=== PATIENT | female | born 1965 | race Caucasian/White ===

== ENCOUNTER 2021-12-13 08:03 | Emergency (ER) | payer BC, SELFPAY ==
[2021-12-13] VITALS (15 sets, daily range): BP systolic 138–185; BP diastolic 73–90; PULSE 49–89; RESP 12–20; TEMP 36.4; O2SAT 98–100
--- NOTE | ~2021-12-13 | CT_ITS ---
EXAMINATION: CTA chest abdomen DATE: 12/13/2021 12:41 INDICATION: Epigastric abdominal pain radiating to the back. TECHNIQUE: Computed tomographic angiography (CTA) of the chest and abdomen was performed with 100 mL Omnipaque-350 intravenous contrast. Automated exposure control and iterative reconstruction technique were employed. The dose-length product was 860.48 mGy-cm. Maximum intensity projection 3D-reconstruc tions of the aorta and other arteries were constructed by the technologist on a separate workstation. COMPARISON: Chest 2 views 12/13/2021 FINDINGS: CHEST CTA: The lungs demonstrate mild atelectasis. No pleural effusion. The heart size is normal. No pericardial effusion. Thoracic aorta is normal. There is no pulmonary embolus. There is mild thoracic spondylosi s. ABDOMEN CTA: The liver is normal. There are changes of cholecystectomy. The spleen, pancreas, and adrenal glands a re normal. There are cysts in the kidneys measuring up to 12 mm on the right. There is a 3 mm stone i n right kidney. There are no dilated loops of bowel. There are no pathologically enlarged lymph nodes . There is no free intraperitoneal fluid. Abdominal aorta is normal in caliber. 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 There is no significant stenosis of the superior or inferior mesenteric arteries or renal arteries. There are no pathologically enlar ged lymph nodes. There is no free intraperitoneal fluid. There is mild lumbar spondylosis. IMPRESSION: 1. Normal aorta. Reviewed, dictated and finalized at location A. HELP DESK ASSOCIATE IMPRESSION: 1. Normal aorta.
--- NOTE | ~2021-12-13 | XR_ITS ---
EXAMINATION: XR chest 2V 12/13/2021 08:48 INDICATION: Chest pain PROCEDURE: 2 view chest COMPARISON: 02/27/2018 FINDINGS: The lungs are clear. The cardiomediastinal silhouette is within normal limits. There are no pleural effusions. There is no pneumothorax suspected. IMPRESSION: 1: NO ACUTE CARDIOPULMONARY DISEASE. Reviewed, dictated and finalized at location B. NING LABORER
--- NOTE | 2021-12-13 08:30 | ECG_ITS ---
Measurements Intervals [place] Rate: 59 P: 29 PA: 139 QRS: 35 QRSD: 85 T: 50 QT: 381 QTc: 378 Interpretive Statements SINUS BRADYCARDIA BASELINE ARTIFACT- I, II, AVR, V1 BORDERLINE ECG Electronically Signed On 12-13-2021 12:21:43 [employer] by Jamie Welch D.O.
[2021-12-13 08:55] LABS: Basophils Percent Auto 0.4 % (0.2-1.2); Eosinophils Absolute Auto 0.2 K/mm3 (0-0.3); Eosinophils Percent Auto 2.1 % (0-4.4); Hemoglobin 14.5 g/dL (12.0-15.0); Immature Granulocyte Absolute 0.02 K/mm3 (0.00-0.031); Immature Granulocyte Percent A 0.3 % (0-0.5); Lymphocytes Absolute Auto 2.81 K/mm3 (0.9-3.2); Lymphocytes Percent Auto 36.8 % (18.3-44.2); Mean Corpuscular HGB Conc 32.2 g/dl (32-36); Mean Corpuscular Hemoglobin 27.3 pg (26-34); Mean Corpuscular Volume 84.7 fl (80-100); Mean Platelet Volume 10.5 fl (7.4-10.4); Monocytes Absolute Auto 0.6 K/mm3 (0.1-0.6); Monocytes Percent Auto 7.7 % (2.6-8.5); Neutrophils Percent Auto 52.7 % (45.5-73.1); Platelet Count Result 301 k/mm3 (150-375); Red Blood Count 5.31 M/mm3 (4.2-5.4); Red Cell Distribution Width 12.6 % (11.5-14.5); White Blood Count 7.6 K/mm3 (4.5-10.0)
[2021-12-13] MEDS: ASPIRIN 81 MG CHEWABLE TABLET 324 MG PO (09:01)
[2021-12-13 09:06] LABS: INR 0.9; Prothrombin Time 12.2 Seconds (11.1-14.7)
[2021-12-13 09:07] LABS: Partial Thromboplastin Time 22.9 SECONDS (22.3-36.8)
[2021-12-13 09:22] LABS: Troponin I < 0.012 ng/mL (0.000-0.034)
[2021-12-13 09:23] LABS: Alanine Aminotransferase 35 U/L (4-35); Albumin Level 4.8 g/dL (3.5-5.1); Alkaline Phosphatase 108 U/L (38-126); Anion Gap 12 mmol/L (8-16); Aspartate Amino Transferase 59 U/L (14-36); Bilirubin,Total 0.7 mg/dL (0.2-1.3); Blood Urea Nitrogen 17 mg/dL (7-17); Calcium 9.4 mg/dL (8.4-10.2); Carbon Dioxide 23 mmol/L (22-30); Chloride 104 mmol/L (98-107); Estimated CRCL calculation 80 ml/min; Estimated Glomerular Filt Rate > 60; Glucose 123 mg/dL (65-110); Lipase 150 U/L (23-300); Potassium 4.7 mmol/L (3.4-5.0); Sodium 139 mmol/L (137-145)
--- NOTE | 2021-12-13 10:50 | ED.CHESTPAIN ---
HPI - Chest Pain General Chief Complaint: Chest Pain Stated Complaint: mid chest pain Time Seen by Provider: 12/13/21 08:40 Source: patient Mode of arrival: ambulatory Limitations: no limitations History of Present Illness HPI narrative: 56-year-old female She complains of having right-sided tooth and jaw pain for the last 3 days She actually saw her dentist yesterday and had a unremarkable exam and is supposed to be referred to an rehabilitation construction specialist She was prescribed antibiotics and Tylenol 3 This morning she took the meds on an empty stomach and started to feel a little queasy and then she had a little bit to eat and after that she developed significant epigastric pain radiating around to her back which was waxing and waning but resolved without any intervention and she is asymptomatic when I see her She notes that she had a mild heart attack which never caused any EKG changes to the best of her recollection and has a stent but that this does not recall that episode In fact she says it reminds her of a gallbladder attack but she has had her gallbladder removed No shortness of breath, sweats, palpitations, cough, fever Related Data Allergies Allergy/AdvReac Type Severity Reaction Status Date / Time No Known Allergies Allergy Unverified 12/13/21 08:18 Review of Systems Review of Systems: All systems reviewed & are unremarkable except as noted in HPI and below Constitutional: Constitutional: Reports no additional constitutional complaints, Denies chills, Denies fever(s) and Denies headache(s) Eyes: Eyes: Reports no additional eye complaints and Denies change in vision ENT: Denies headache(s) and Denies sore throat Comments: Tooth jaw pain Cardiovascular: Cardiovascular: Denies chest pain, Reports radiating jaw, neck or arm pain and Denies dyspnea Respiratory: Respiratory: Denies cough and Denies dyspnea Gastrointestinal: Gastrointestinal: Reports abdominal pain, Denies bloating, Denies diarrhea, Reports nausea and Denies vomiting Genitourinary: Genitourinary: Denies urinary frequency and Denies dysuria Musculoskeletal: Musculoskeletal: Denies deformity, Denies arthralgias, Denies joint swelling and Denies numbness Integumentary/Breasts: Skin/Breast: Denies rash and Denies wounds Neurologic: Denies headache(s), Denies focal weakness and Denies numbness Psychiatric: Psychiatric: Reports no additional psychiatric complaints Endocrine: Endocrine: Reports no additional endocrine complaints Hematologic/Lymphatic: Hematologic/Lymphatic: Reports no additional hematologic/lymphatic complaints Allergic/Immunologic: Allergic/Immunologic: Reports no additional allergic/immunologic complaints Exam Const: General: cooperative and no acute distress Orientation/consciousness: patient oriented x3 (alert) HENMT: Head: normal to inspection, normocephalic and atraumatic Ears: external ears normal General nose exam: no epistaxis Eyes: Conjunctivae: conjunctivae normal EOM: EOMs intact bilaterally Neck: Neck: normal visual inspection, supple and no JVD Resp: Effort & Inspection: normal respiratory effort and not labored Auscultation: clear to auscultation bilaterally, no rales, no rhonchi, no wheezes and other (BS =) Cardio: Rate: regular rate Rhythm: regular rhythm Heart sounds: no murmurs GI: GI Palp: Yes Soft to palpation, No Tenderness to palpation present (GI), No Guarding due to palpation present (GI) and No Rebound tenderness present Skin: General skin exam: normal color and no rashes or lesions noted Neuro: General: patient oriented x3 (alert) and moves all extremities Speech: normal speech Extrem: General: normal to inspection and no pedal edema Psych: Affect: normal affect Course Course Emergency Course: First troponin and EKG were unremarkable as were the remaining labs We experienced delays in getting a D-dimer processed and getting a second troponin sent Her discomfort returned, got another EKG
--- NOTE | 2021-12-13 12:17 | ECG_ITS ---
Measurements Intervals [place] Rate: 46 P: 31 MA: 149 QRS: 28 QRSD: 91 T: 28 QT: 464 QTc: 406 Interpretive Statements SINUS BRADYCARDIA BORDERLINE T WAVE ABNORMALITY- ANTERIOR LEADS ABNORMAL ECG Electronically Signed On 12-14-2021 14:32:58 DIRECTOR MUSIC by Jamie Welch D.O.
[2021-12-13 13:31] LABS: Troponin I < 0.012 ng/mL (0.000-0.034)
== END 2021-12-13 14:20 | disposition home or self-care (01) ==
PROVIDERS: Emergency Provider Emergency Medicine; PCP Internal Medicine
DX: I77.4 Celiac artery compression syndrome (principal); R00.1 Bradycardia, unspecified
CPT/HCPCS: 36415; 71046; 71275; 74175; 80053; 83690; 84484; 85025; 85610; 85730; 93005; 99284; A9270; Q9967